=== PATIENT | female | born 1970 | race Asian ===

== ENCOUNTER 2023-12-19 10:02 | Emergency (ER) | payer BC ==
[~2023-12-19] VITALS: Ht 157.5 cm; Wt 67.1 kg
[2023-12-19 10:10] VITALS: BP_SYST 134; PULSE 92; RESP 18; TEMP 97.7; O2SAT 98
[2023-12-19 10:56] LABS: INFLUENZA TYPE A Negative (NEGATIVE); INFLUENZA TYPE B NEGATIVE (NEGATIVE)
[2023-12-19] MEDS: IPRATROPIUM/ALBUTEROL SULFATE 3 ML AMPUL.NEB (DUONEB) INH ONE (10:58)
[2023-12-19] MEDS ORDERED: PRED20TA PO (11:01)
[2023-12-19] MEDS ORDERED: IBUP-1969 PO (11:01)
[2023-12-19 11:10] VITALS: BP_SYST 134; PULSE 92; RESP 18; TEMP 97.7; O2SAT 93
== END 2023-12-19 11:08 | disposition home or self-care (01) ==
LOC: SED 10:02
DX: J45.909 Unspecified asthma, uncomplicated (principal); R05.9 Cough, unspecified; R09.89 Other specified symptoms and signs involving the circulatory and respiratory systems; J02.9 Acute pharyngitis, unspecified; Z79.899 Other long term (current) drug therapy; Z20.822 Contact with and (suspected) exposure to COVID-19
CPT/HCPCS: 36415; 71045; 94640; 99284